=== PATIENT | male | born 1985 | race Caucasian/White ===

== ENCOUNTER 2022-01-10 21:28 | Emergency (ER) | payer OTHER ==
[~2022-01-10] VITALS: Ht 190.5 cm; Wt 98.2 kg
[2022-01-10 21:36] VITALS: TEMP 98
[2022-01-10 22:27] LABS: BASO % 0.2 % (0.0-2.0); EOS % 0.2 % (0.0-4.0); GRAN # 4.7 K/mm3 (1.4-6.5); GRAN % 77.6 % (42.2-75.2); HEMATOCRIT 43.6 % (42.0-52.0); HEMOGLOBIN 15.8 g/dl (13.5-18.0); LYMPH # 0.7 K/mm3 (1.2-3.4); MEAN CELL VOLUME 86 fl (80.0-100.0); MEAN CORPUSCULAR HEMOGLOBIN 31 pg (27-31); MEAN CORPUSCULAR HGB CONC 36 g/dl (33.0-37.0); MEAN PLATELET VOLUME 10.6 fl (7.4-10.4); MONO # 0.6 K/mm3 (0.1-0.6); MONO % 9.7 % (1.7-9.3); PLATELET COUNT 181 K/mm3 (130-400); RED BLOOD COUNT 5.08 M/mm3 (4.20-5.60); REDCELL DISTRIBUTION WIDTH-CV 12.1 % (11.5-14.5)
[2022-01-10 22:59] LABS: CALCIUM 9.4 mg/dL (8.4-10.2); CREATININE, serum 1.96 mg/dL (0.72-1.25); POTASSIUM 4.7 mmol/L (3.5-4.5)
[2022-01-11 00:25] VITALS: BP 132/70; PULSE 76
== END 2022-01-11 00:25 | disposition home or self-care (01) ==
LOC: COL.ER 21:28
PROVIDERS: Physician Assistant
DX: T67.2XXA Heat cramp, initial encounter (principal); M79.18 Myalgia, other site; N17.9 Acute kidney failure, unspecified; Z28.310 Unvaccinated for COVID-19; X30.XXXA Exposure to excessive natural heat, initial encounter
CPT/HCPCS: J7120